=== PATIENT | male | born 1990 | race Caucasian/White ===

== ENCOUNTER → 2019-11-28 | Outpatient (CLI) | payer OTHER ==
--- NOTE | 2019-11-28 14:03 | Diagnostic Imaging Report ---
INDICATION: Left arm pain. COMPARISON: None available TECHNIQUE: 2 radiographs of the left forearm dated 11/28/2019. FINDINGS: No acute fracture or dislocation. No destructive osseous process. No evidence of a healing fracture. No suspicious radiopaque foreign body. IMPRESSION: No acute osseous abnormality. Dictated by: Dictated on workstation # [id number]
== END ==
LOC: RAD FS 12:43
PROVIDERS: ATTEND Family Medicine
DX: M79.602 Pain in left arm (principal)
CPT/HCPCS: 73090